=== PATIENT | female | born 1985 | race Caucasian/White ===

== ENCOUNTER 2024-01-04 06:35 | Emergency (ER) | payer OTHER ==
[~2024-01-04] VITALS: Ht 160 cm; Wt 68.0 kg
[2024-01-04 06:49] VITALS: BP 137/85; PULSE 58; RESP 20; TEMP 98.1; O2SAT 99
[2024-01-04] MEDS ORDERED: ACYC400T14 PO (07:24)
[2024-01-04] MEDS ORDERED: FLUC150T64 PO (07:24)
[2024-01-04 07:45] VITALS: BP 137/85; PULSE 58; RESP 20; TEMP 98.1; O2SAT 99
== END 2024-01-04 07:45 | disposition home or self-care (01) ==
LOC: MED 06:35
DX: A60.00 Herpesviral infection of urogenital system, unspecified (principal); B37.31 Acute candidiasis of vulva and vagina; R03.0 Elevated blood-pressure reading, without diagnosis of hypertension; Z79.1 Long term (current) use of non-steroidal anti-inflammatories (NSAID); Z79.899 Other long term (current) drug therapy
CPT/HCPCS: 81002; 81025; 99283